=== PATIENT | female | born 1990 | race Two or more races ===

== ENCOUNTER 2025-01-11 16:25 | Observation (INO) | payer MEDICAID, SELFPAY ==
[2025-01-11 17:09] LABS: Collection Type, Urine Clean Catch
[2025-01-11 17:20] LABS: Bacteria,Urine 2+; Bilirubin,Urine Negative (Negative); Blood,Urine Negative (Negative); Clarity,Urine Clear (Clear/Hazy); Color,Urine Colorless (Lt Yel-Yel); Glucose, Urine Negative (Negative); Ketones,Urine Negative (Negative); Leukocyte Esterase,Urine Positive (Negative); Nitrite,Urine Negative (Negative); PH,Urine 6.5 (5.0-7.0); Protein,Urine Negative (Neg - Trace); RBC,Urine 2 /hpf (0-3); Specific Gravity,Urine 1.009 (1.001-1.035); Squamous Epithelial Cell,Urine 1 /hpf (0-5); Urobilinogen,Urine Negative mg/dL (0.0-1.0); WBC,Urine 4 /hpf (0-5)
[2025-01-11 18:05] LABS: FFN Specimen Descripton Other
[2025-01-11 19:57] VITALS: BMI 27.8
[2025-01-11] MEDS: NITROFURANTOIN MACRO 100 MG CAPSULE PO (20:17)
[2025-01-12 09:15] LABS: BVAG Candida Negative (Negative); Bacterial Vaginosis Markers Negative (Negative); Candida glabrata Negative (Negative); Candida krusei PCR Negative (Negative); Trichomonas Negative (Negative)
== END 2025-01-11 20:24 | disposition home or self-care (01) ==
PROVIDERS: Admitting Provider Obstetrics & Gynecology; Referring Provider Obstetrics & Gynecology; Visit Provider Obstetrics & Gynecology
DX: O26.893 Other specified pregnancy related conditions, third trimester (principal); R82.998 Other abnormal findings in urine; Z3A.29 29 weeks gestation of pregnancy
CPT/HCPCS: 59025; 59899; 81001; 81514; 82731; A9270

== ENCOUNTER 2025-03-05 16:38 | Observation (INO) | payer MEDICAID, SELFPAY ==
[2025-03-05] VITALS (14 sets, daily range): BP systolic 103; BP diastolic 59; PULSE 76–85; RESP 17; TEMP 36.8; O2SAT 94–97; BMI 30.4
--- NOTE | 2025-03-05 16:44 | XR_ITS ---
Examination: age limited TECHNIQUE: Limited transabdominal sonographic images pelvis Examination type: March 05, 2025 1651 hours INDICATIONS: Leaking amniotic fluid beginning one week ago. FINDINGS: Viable intrauterine gestation cephalic presentation spine maternal right Cardiac motion 143 bpm Amniotic fluid index 12.6 cm IMPRESSION: Viable intrauterine gestation cephalic presentation Amniotic fluid index 12.6 cm
--- NOTE | 2025-03-05 17:20 | PC.NURSE ---
16:42 DR BELLAMY CALLED PRIOR TO PT ARRIVING WITH SBAR AND ORDERS. WITH PT PERMISSION EFM PLACED X2. PT STATES SHE THINKS HER WATER BROKE 5 DAYS AGO. PT STATES +FM. DENIES VB AND CTX.
[2025-03-05 17:31] LABS: ROM Kit Lot # 57807112; ROM Swab Mixed By: DAVIS2; Rupture of Fetal Membranes Negative (Negative); Swb Mxed in Solvent 1 min? Yes
--- NOTE | 2025-03-05 17:46 | PC.NURSE ---
17:[address] MAN AT BEDSIDE. DR MAN ASSESSING PT. SPECULUM EXAM PREFORMED AND YEAST VISUALIZED PER . AMNISURE IS NEGATIVE. DR MAN MADE PT AWARE TO FOLLOW UP WITH DR BELLAMY IF SHE HAS ITCHING OR SYMPTOMS DEVELOP. POD TO DISCHARGE PT HOME.
--- NOTE | 2025-03-05 17:49 | P.TNLD_ITS ---
Documentation for date of: 03/05/25 Hx History Provider: dr bravo Attending Provider: MAGDA : 1 Para: 0 Term: 0 : 0 Number of Living Children: 0 Abortions: Spontaneous & Elective: 0 # of Vaginal Deliveries:: 0 Hx Section: No Hx Vaginal Delivery Post : No Gestation Info Final KEVIN: 03/26/25 Complaint Complaint Complaint: LEAKING FOR 5 DAYS. CURRENT RESULT OF IVF TWIN IMPLANTATION. HAD SECOND TRIMESTER LOSS OF ONE TWIN. MFM CONSULT DONE. RECENT ANTIBIOTICS FOR UTI. AFTER ANTIBIOTICS PATIENT NOTE SOME VAGINAL FLUID. SPECULUM= THICK WHITE DISCHARGE, NO VAGINAL POOLING. AMISURE TEST NEGATIVE FHR = REACTIVE NST. ONE CONTRACTION IN 20 MINUTES, DURATION 40 SECONDS DISCHARGE HOME. 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 THE HAVE TURNED THE MONITOR OFF SO THERE IS NO FEEDBACK. RN WILL TURN EFM BACK ON AFTER U/S IS COMPLETED Amniotic Membranes Amniotic Membranes Amniotic Membrane Status: Leaking Amniotic Membranes Comment: PT STATES LEAKING FOR 5 DAYS. RN WILL DO AMNISURE AFTER U/S IS COMPLETED AND SEND TO LAB Social risk screen Social Risk Screening Observed or verbalized signs of abuse or neglect: No [place] Referral: No
== END 2025-03-05 18:09 | disposition home or self-care (01) ==
PROVIDERS: Admitting Provider Obstetrics & Gynecology; Visit Provider Obstetrics & Gynecology
DX: Z34.03 Encounter for supervision of normal first pregnancy, third trimester (principal); Z3A.37 37 weeks gestation of pregnancy
CPT/HCPCS: 59025; 59899; 76815; 84112

== ENCOUNTER 2025-03-19 08:36 | Inpatient (IN) | payer MEDICAID, SELFPAY ==
[2025-03-19] VITALS (67 sets, daily range): BP systolic 94–168; BP diastolic 50–89; PULSE 51–80; RESP 16–18; TEMP 36.4–37.2; O2SAT 91–100; BMI 30.2
[2025-03-19 09:52] LABS: Basophils % (Auto) 0 % (0-2.5); Eosinophils % (Auto) 0 % (0-10); Hematocrit 30.1 % (36.0-46.0); Hemoglobin 10.6 g/dL (12.0-16.0); Immature Granulocytes % (Auto) 1 % (0-0); Immature Granulocytes Auto 0.06 Thou/mm3 (0.00-0.00); Lymphocytes # (Auto) 1.4 Thou/mm3 (1.0-4.8); Lymphocytes % (Auto) 16 % (10-50); Mean Corpuscular HGB Conc 35.2 g/dl (31.0-37.0); Mean Corpuscular Hemoglobin 30.4 pg (25.0-35.0); Mean Corpuscular Volume 86 fL (80-100); Monocytes # (Auto) 1.1 Thou/mm3 (0.0-0.8); Monocytes % (Auto) 13 % (0-12); Neutrophils # (Auto) 6.2 Thou/mm3 (1.8-7.7); Neutrophils % (Auto) 70 % (37-80); Nucleated Red Blood Cell % 0 /100 WBC (0); Platelet Count 185 Thou/mm3 (140-440); RDW Standard Deviation 42.5 fL (36.4-46.3); Red Blood Count 3.49 Miln/mm3 (4.00-5.20); White Blood Count 8.8 Thou/mm3 (3.6-11.0)
--- NOTE | 2025-03-19 10:13 | XR_ITS ---
Examination: age Limited TECHNIQUE: Limited transabdominal sonographic images pelvis Date and time: March 19, 2025 11:11 AM INDICATIONS: Labor induction today, unknown presentation. FINDINGS: Viable intrauterine gestation cephalic presentation spine maternal right. Cardiac motion 137 BPM IMPRESSION: Viable intrauterine gestation cephalic presentation
[2025-03-19 10:41] LABS: Syphilis Nonreactive (Nonreactive)
--- NOTE | 2025-03-19 11:23 | PD.LDHP ---
Documentation for date of: 03/19/25 OB Labor/Induct. HPI History of Present Illness : 1 Term pregnancies: 0 pregnancies: 0 Living children: 0 History of Abortions: Spontaneous and Elective: 0 History of sections: No History of : No Date of last menstrual period: 06/12/24 KEVIN: 04/06/25 Gestational age based on last menstrual period: 40 History of present illness: @39w, herefor IOL . Geoff is concieved via IVF-ET. started with di-di twin, has a demise of 1 twin at 22 weeks. GTT wnl,, otherwise brayan has been going well History of Present Adequate Care: Yes Abnormal ultrasound findings: IVF-ET confirmed dating Anatomy , ECHO, WNL Labs Labs: Positive: Group Beta Strep, Negative: RPR, Hepatitis B, Rubella Titre, HIV, Chlamydia and Gonorrhea and Unknown: Herpes Type 1 and Herpes Type 2 Past Medical History Surgical History SURGICAL: Negative Section Meds Home Medications and Allergies Home Medications ?Medication ?Instructions ?Recorded ?Confirmed ?Type No Known Home Medications 03/19/25 03/19/25 History Allergies Allergy/AdvReac Type Severity Reaction Status Date / Time No Known Allergies Allergy Verified 03/19/25 08:51 OB Exam Physical Exam Vital signs: Temp Pulse Resp BP O2 Del Method 98.8 F 68 18 122/74 Room Air 03/19/25 09:36 03/19/25 11:06 03/19/25 09:36 03/19/25 11:06 03/19/25 09:36 OB Results Labs 03/19/25 09:13 Labs: Short CBC 03/19/25 Range/Units 09:13 WBC 8.8 (3.6-11.0) Thou/mm3 Hgb 10.6 L (12.0-16.0) g/dL Hct 30.1 L (36.0-46.0) % Plt Count 185 (140-440) Thou/mm3 Impressions Impression: 35 Y/O @39W, IVF-ET , twin di-di demise of one twin at 22 week admitted for IOL GBS +e vUS to confirm presentation , cephalic 2 week ago /-3 OB Assessment & Plan Additional Plan Additional Plan Comment: cytotes per protocol once cephalic is confirmed
[2025-03-19] MEDS: RINGERS LACTATED 1000 ML 1,000 ML 100 ML IV ×3 (11:32→23:17)
[2025-03-19] MEDS: Ampicillin Inj 2,000 MG in SODIUM CHLORIDE 0.9% (POP) 100 ML 200 MG IV (12:42)
[2025-03-19] MEDS: MISOPROSTOL 50 mCg TABLET PO (12:42)
[2025-03-19] MEDS: Ampicillin Inj 1,000 MG in SODIUM CHLORIDE 0.9% (Popper) 50 ML 50 MG IV ×2 (16:50→20:28)
[2025-03-20] VITALS (215 sets, daily range): BP systolic 97–147; BP diastolic 56–91; PULSE 48–245; RESP 16; TEMP 36.7–37.2; O2SAT 63–100
[2025-03-20] MEDS: Ampicillin Inj 1,000 MG in SODIUM CHLORIDE 0.9% (Popper) 50 ML 50 MG IV ×3 (00:27→08:27)
[2025-03-20] MEDS: OXYTOCIN in NS 30 units 30 UNIT/500 ML BAG IV (01:55)
[2025-03-20] MEDS: RINGERS LACTATED 1000 ML 1,000 ML 100 ML IV ×2 (04:30→08:13)
--- NOTE | 2025-03-20 09:34 | PD.LDPN ---
Documentation for date of: 03/20/25 OB Labor Progress Note Pelvic Exam Dilation (cm): 10 Effacement (%): 100 station: -2 Amniotic membrane status: Ruptured Contractions Monitor mode: External Contraction frequency: 1.5-5.5 Contraction pattern: Tetanic Contraction intensity: Moderate Status status: Category l Assessment and Plan Comments: Patient has been feeling some pressure, however on practice pushes baby does not move that much. Patient is allowed to bear down and is placed in a sitting position. Practice pushes to be resumed in 30 minutes
[2025-03-20] MEDS: MINERAL OIL 30 ML UDC TOP (10:30)
[2025-03-20] MEDS: LIDOCAINE HCL 1% 20 ML VIAL INFL (10:31)
[2025-03-20] MEDS: OXYTOCIN in NS 20 units 20 UNIT/1,000 ML BAG 125 UNIT IV (10:37)
[2025-03-20] MEDS: BENZO/LANO/ALOE (Dermoplast) 60 GM CAN 1 SPRAY TOP (10:46)
[2025-03-20] MEDS: TRANEXAMIC ACID 1,000 MG IVPB 1,000 MG/100 ML BAG 200 MG IV (11:06)
--- NOTE | 2025-03-20 11:41 | PD.LDDELS ---
Data (Muñoz) Data Hx Section: No : 2 Term: 0 : 0 Livin Abortions: Spontaneous & Theraputic: 0 Delivery Data (Muñoz) Labor Data Initiation of labor: Induction Induction/Augmentation Agent: Cytotec-PO and Pitocin ROM date: 03/20/25 ROM time: 06:23 Amniotic membrane rupture type: Spontaneous Amniotic fluid description: Clear Delivery Data Onset of labor date: 03/20/25 Onset of labor time: 06:23 Complete dilation date: 03/20/25 Complete dilation time: 09:09 delivery date: 03/20/25 [place] delivery time: 10:37 Gestational age (weeks): 39 Gestational age (days): 1 Placenta delivery date: 03/20/25 Placenta delivery time: 10:37 Stage 1 total time: Labor - Stage 1 Duration 2 hours and 46 minutes Delivered by: Mohan Natarajan Delivery nurse: El Mercer RN [place] nurse: Lai Valdez RN, Lia RADFORD Chronic Manager at delivery: No Support person(s) at delivery: FOB & maternal Grandma Other staff at delivery: Jany Person RN Delivery Method Delivery method: Normal Vaginal Delivery Presentation: Vertex Anesthesia Type Anesthesia Type: Epidural Placenta Placenta delivery description: Spontaneous (Patient had history of twin demise from 22 weeks. Placenta after it was delivered was carefully examined to contain 2 sacs the atrophic baby from the demise was contained in the other sac and was verified placentae in total appeared to be intact bimanual examination was done no RPOC) Cord blood sent to lab: Yes cord blood collection: Cord Blood Type Episiotomy Episiotomy description: None Perineal repair Sutures used for repair: 3.0 Vicryl (Using 2 speculums and 3 ring forceps carefully circumferential examination of the cervix was done to exclude any cervical tear on the anterior lip of the cervix what appeared to be friable possibly atrophic polyp. Bleeding stopped on application of pressure and no suturing was required) Umbilical Cord cord description: 3 Vessels Data (Muñoz) Data [place]'s gender: Female weight (gms): 3090 g Weight (pounds): 6 lbs and 13.0 ozs [place] length: 48 cm 1 minute: 8 5 minutes: 9
--- NOTE | 2025-03-20 13:52 | PC.NURSE ---
Rosa Isela ZARAGOZA updated RN Gricel attempted to get patient up to bathroom via steady, pt felt like passing out and had to be laid back own. Vitals stable WNL, fundus firm with scant bleeding. Pt now feels like she said she can't breath, pt sat up straight and O2 sats 100%. Pt states she is having an anxiety attack and has them frequently. per patient the anxiety attack is passing and she feels better. CBC orders received for 1700
[2025-03-20 17:16] LABS: Basophils % (Auto) 0 % (0-2.5); Eosinophils % (Auto) 0 % (0-10); Hematocrit 24.6 % (36.0-46.0); Immature Granulocytes % (Auto) 0 % (0-0); Immature Granulocytes Auto 0.06 Thou/mm3 (0.00-0.00); Lymphocytes # (Auto) 1.1 Thou/mm3 (1.0-4.8); Lymphocytes % (Auto) 7 % (10-50); Mean Corpuscular HGB Conc 33.7 g/dl (31.0-37.0); Mean Corpuscular Hemoglobin 30.5 pg (25.0-35.0); Mean Corpuscular Volume 90 fL (80-100); Monocytes # (Auto) 1.6 Thou/mm3 (0.0-0.8); Monocytes % (Auto) 11 % (0-12); Neutrophils # (Auto) 11.9 Thou/mm3 (1.8-7.7); Neutrophils % (Auto) 81 % (37-80); Nucleated Red Blood Cell % 0 /100 WBC (0); Platelet Count 148 Thou/mm3 (140-440); RDW Standard Deviation 44.1 fL (36.4-46.3); Red Blood Count 2.72 Miln/mm3 (4.00-5.20); White Blood Count 14.7 Thou/mm3 (3.6-11.0)
[2025-03-20 17:23] LABS: Hemoglobin 8.3 g/dL (12.0-16.0)
[2025-03-21 04:07] VITALS: BP 105/66; PULSE 71; RESP 16; TEMP 36.9; O2SAT 96
[2025-03-21] MEDS: IBUPROFEN TAB 400 MG TABLET 800 MG PO (07:53)
[2025-03-21 08:00] VITALS: BP 100/64; RESP 18; TEMP 36.7
--- NOTE | 2025-03-21 08:53 | ESPR_ITS ---
Subjective Subjective Interval history: Patient denies any problem or complaint Exam Vital Signs Temp Pulse Resp BP Pulse Ox O2 Del Method O2 Flow Rate 98.4 F 71 16 105/66 96 Room Air 5 03/21/25 04:07 03/21/25 04:07 03/21/25 04:07 03/21/25 04:07 03/21/25 04:07 03/21/25 04:07 03/20/25 13:31 Routine Abdominal Exam Comments: Fundus is firm nontender Routine Extremities Exam Comments: Nontender Objective Labs 03/20/25 17:07 Labs: Laboratory Results - last 24 hr 03/20/25 17:07 WBC 14.7 H D RBC 2.72 L Hgb 8.3 L D Hct 24.6 L MCV 90 MCH 30.5 MCHC 33.7 RDW Std Deviation 44.1 Plt Count 148 D Neut % (Auto) 81 H Lymph % (Auto) 7 L [place] % (Auto) 11 Eos % (Auto) 0 Baso % (Auto) 0 Neut # (Auto) 11.9 H Lymph # (Auto) 1.1 [place] # (Auto) 1.6 H Eos # (Auto) 0.0 Baso # (Auto) 0.0 Immature Gran # (Auto) 0.06 H Absolute Nucleated RBC 0.00 Immature Gran % 0 Nucleated RBC % 0 Assessment & Plan Assessment Comment Assessment comment: day #1 status post spontaneous vaginal delivery Anemia but hemodynamically stable Discharge home and follow-up in the office in 6 weeks Time Spent With Patient Time: Total time spent is greater than 50% in coordination of care (as documented) at patient's floor/unit and/or counseling patient:
--- NOTE | 2025-03-21 09:05 | PD.LDDS ---
DS: Providers Provider Date of admission: 03/19/25 08:36 Primary care physician: Physician No Primary/Family Admitting Provider: Mohan Natarajan MD Attending Provider on Admission: Mario Naylor MD Consults: 03/20/25 11:44 Referral Routine Comment: Attending Provider on DC: Mario Naylor MD Discharging Provider: Mario Naylor MD DS: Diagnosis Problem List Completed Was Problem List Reviewed/Reconciled?: Yes Summary/Hosp Course Brief History: @39w, herefor IOL . Geoff is concieved via IVF-ET. started with di-di twin, has a demise of 1 twin at 22 weeks. GTT wnl,, otherwise brayan has been going well Peripartum Data Delivery Method: Normal Vaginal Delivery Episiotomy Description: None Time Spent with Patient Time attestation: Total time spent providing and/or coordinating discharge services: Exam Vital Signs Temp Pulse Resp BP Pulse Ox O2 Del Method O2 Flow Rate 98.4 F 71 16 105/66 96 Room Air 5 03/21/25 04:07 03/21/25 04:07 03/21/25 04:07 03/21/25 04:07 03/21/25 04:07 03/21/25 04:07 03/20/25 13:31 Discharge Plan Plan Patient Disposition: HOME (Self Care) Patient condition on transfer: Stable Prescriptions/Referrals Prescriptions/Med Rec: New ibuprofen 600 mg tablet 600 mg PO Q6H PRN (Reason: pain) Qty: 30 0RF Referrals: No Primary/Family,Physician [Primary Care Provider] - Patient/Caregiver Discharge Instructions Discharge Activity: activity as tolerated Other Discharge Activity Instructions:: Follow up office 6 wks Print Language: Australian Stand Alone Forms: [facility]i Award Info., Patient Portal Info Letter Discharge Order Discharge Orders: Discharge (Routine); Ordered 03/21/25 Ordered By: Mario Naylor Planned Discharge Date 03/21/25
[2025-03-21 12:00] VITALS: BP 111/71; PULSE 77; RESP 16; TEMP 36.7; O2SAT 97
--- NOTE | 2025-04-03 08:21 | PD.LDHP ---
Documentation for date of: 04/03/25 OB Labor/Induct. HPI History of Present Illness : 2 Para: 0 Term pregnancies: 0 pregnancies: 0 Living children: 0 History of Abortions: Spontaneous and Elective: 0 History of sections: No History of : No Date of last menstrual period: 06/12/24 KEVIN: 03/19/25 Gestational Age (weeks): 40 Gestational Age (days): 1 Gestational age based on last menstrual period: 44 History of present illness: @39w, herefor IOL . Geoff is concieved via IVF-ET. started with di-di twin, has a demise of 1 twin at 22 weeks. GTT wnl,, otherwise brayan has been going well History of Present Adequate Care: Yes Labs Labs: Positive: Group Beta Strep, Negative: RPR, Hepatitis B, Rubella Titre, HIV, Chlamydia and Gonorrhea and Unknown: Herpes Type 1, Herpes Type 2 and Covid-19 Past Medical History Surgical History SURGICAL: Negative Section Meds Home Medications and Allergies Allergies Allergy/AdvReac Type Severity Reaction Status Date / Time No Known Allergies Allergy Verified 03/19/25 08:51 OB Exam Physical Exam Vital signs: Temp Pulse Resp BP Pulse Ox O2 Del Method O2 Flow Rate 98.0 F 77 16 111/71 97 Room Air 5 03/21/25 12:00 03/21/25 12:00 03/21/25 12:00 03/21/25 12:00 03/21/25 12:00 03/21/25 12:00 03/20/25 13:31 OB Results Labs 03/20/25 17:07
== END 2025-03-21 14:25 | disposition home or self-care (01) | DRG 560 ==
LOC: S4SX 03-20 10:58 → S4NX 03-20 15:26
PROVIDERS: Admitting Provider Student in an Organized Health Care Education/Training Program; Visit Provider Specialist
DX: O31.1 Continuing pregnancy after spontaneous abortion of one fetus or more (principal); O99.824 Streptococcus B carrier state complicating childbirth; Z37.1 Single stillbirth; Z3A.39 39 weeks gestation of pregnancy
CPT/HCPCS: 36415; 59409; 76815; 85025; 86780; 86850; 86900; 86901; 94762; J0290; J2590; J2795; J3010; J3490; J7050; J7120; A9270